=== PATIENT | male | born 1935 | race Caucasian/White ===

== ENCOUNTER 2017-10-28 11:38 | Inpatient (IN) ==
[2017-10-28] MEDS ORDERED: 0.9 % Sodium Chloride 1,000 ML IVC ONE (11:42)
[2017-10-28] MEDS ORDERED: Ipratropium/Albuterol Neb 3 ML IH ONE (11:52)
[2017-10-28 12:14] LABS: Mean Platelet Volume 10.6 fL (9.4-12.4); Nucleated Red Blood Cells 0.1 /100 WBC (0)
[2017-10-28 12:15] LABS: Hematocrit 49.2 % (37.5-50.1); Hemoglobin 16.6 g/dL (12.9-16.9); Mean Corpuscular HGB Conc 33.7 g/dL (31.6-35.5); Mean Corpuscular Hemoglobin 29.9 pg (28.0-33.3); Mean Corpuscular Volume 88.5 fL (83.0-100.0); Platelet Count 159 K/mcL (140-400); Red Blood Count 5.56 M/mcL (4.19-5.50); Red Cell Distribution Width 13.7 % (11.5-14.5)
[2017-10-28 12:27] LABS: INR 1.2; Prothrombin Time 12.9 Seconds (9.4-12.1)
[2017-10-28 12:30] LABS: Activated Partial Thrombo Time 27.7 Seconds (26.0-36.0)
[2017-10-28 12:45] LABS: Monocytes # 1.8 K/mcL (0.0-1.3); Neutrophils # 8.9 K/mcL (1.6-8.9); Smudge Cells Present (Not Present)
[2017-10-28 12:46] LABS: Platelet Estimate Normal (Normal)
[2017-10-28 12:58] LABS: Alanine Aminotransferase 22 Units/L (7-52); Albumin 4.2 g/dL (3.5-5.7); Albumin/Globulin Ratio 1.8 (1.1-2.2); Alkaline Phosphatase 42 Units/L (34-104); Aspartate Amino Transferase 21 Units/L (13-39); Bilirubin,Direct 0.2 mg/dL (0.0-0.2); Bilirubin,Total 1.2 mg/dL (0.3-1.0); Blood Urea Nitrogen 19 mg/dL (8-23); Calcium 9.1 mg/dL (8.6-10.3); Carbon Dioxide 24 mEq/L (23-29); Chloride 104 mEq/L (98-107); Globulin 2.4 g/dL (2.4-3.5); Glucose 132 mg/dL (70-105); Magnesium 1.8 mg/dL (1.6-2.6); Osmolality,Calculated 290 (280-300); Phosphorous 2.9 mg/dL (2.7-4.5); Potassium 3.8 mEq/L (3.5-5.1); Sodium 138 mEq/L (136-145); Total Protein 6.6 g/dL (6.4-8.9)
[2017-10-28 13:38] LABS: BUN/Creatinine Ratio 14 (6-26); eGFR For African Americans > 60 (> 60); eGFR For Non-African Americans 50 (> 60)
[2017-10-28 13:40] LABS: Bilirubin,Urine Negative (Negative); Blood,Urine Large (Negative); Clarity,Urine Clear (Clear); Color,Urine Yellow (Yellow); Glucose,Urine (UA) Normal (Normal); Ketones,Urine Negative (Negative); Leukocyte Esterase,Urine Negative (Negative); Nitrite,Urine Negative (Negative); Protein,Urine Trace mg/dL (Neg-Trace); Specific Gravity,Urine 1.028 (1.010-1.025); Urobilinogen,Urine Normal (Normal)
[2017-10-28 13:43] LABS: Bacteria,Urine None Seen per hpf (None-Few); Hyaline Casts,Urine None Seen per lpf (None-Few); RBC,Urine TNTC per hpf (0-3); Squamous Epithelial Cell,Urine Moderate per lpf (None-Few); WBC,Urine 0-3 per hpf (0-3)
--- NOTE | 2017-10-28 13:54 | Emergency Department Note ---
Disposition Clinical Impression: Abnormal CT scan, lung, Weakness, Hypoxia Pneumonia Qualifiers: Pneumonia type: due to unspecified organism Laterality: unspecified laterality Lung location: unspecified part of lung Qualified Code(s): J18.9 - Pneumonia, unspecified organism Disposition: Admitted As Inpatient Condition: Fair General Adult HPI - General Chief complaint: ED Shortness of Breath/Dyspnea Stated complaint: Cough, Weakness Time Seen by Provider: 10/28/17 11:41 Source: patient, EMS Limitations: no limitations Nursing Notes Reviewed: Yes Vital Signs Reviewed: Yes - History of Present Illness HPI Narrative: Patient presents today for evaluation of generalized weakness. States the weakness is been going on for almost 2 days. Patient unable to get up off the couch. Patient has urinated on himself. Patient has had increased dyspnea. Patient requiring 2 L of oxygen within the emergency department. Does not require home oxygen. [facility] concern for possible [facility]. Patient is able to transfer himself over from the EMS caught to his bed. Complains of whole body weakness and body aches. He has had a cough and is concerned that he has possible pneumonia. He has had positive sputum production. Intermittent subjective fevers. Pain Scale: 0 - Related Data Home Medications Medication Instructions Recorded Confirmed Carboxymethylcellulose Sodium 1 drop BOTH EYES QID 10/28/17 10/28/17 [Refresh Liquigel] Cholecalciferol (D-3) [Vitamin D] 1,000 unit PO DAILY 10/28/17 10/28/17 Ketotifen Fumarate [Zaditor] 1 drop BOTH EYES BID PRN 10/28/17 10/28/17 Naproxen [Naprosyn] 250 mg PO BID PRN 10/28/17 10/28/17 Omeprazole [PriLOSEC] 20 mg PO DAILY PRN 10/28/17 10/28/17 Allergies Allergy/AdvReac Type Severity Reaction Status Date / Time No Known Allergies Allergy Verified 10/28/17 11:39 Review of Systems: CONSTITUTIONAL: Fevers chills weakness and fatigue HEENT: Eyes: No visual changes. Ears, Nose, Throat: No hearing loss, difficulty talking or unable to swallow. SKIN: No rash or itching. CARDIOVASCULAR: No chest pain, chest pressure or chest discomfort. No palpitations or edema. RESPIRATORY: Cough with positive sputum production GASTROINTESTINAL: No anorexia, nausea, vomiting or diarrhea. No abdominal pain or blood. GENITOURINARY: Urinary incontinence NEUROLOGICAL: No headache, dizziness, syncope, paralysis, ataxia, numbness or tingling in the extremities. No change in bowel or bladder control. MUSCULOSKELETAL: No muscle pain, back pain, joint pain or stiffness. Past Medical History - Past Medical History Medical history: Reports: cancer - Social History Smoking Status: Former smoker Smokeless Tobacco Status: No Alcohol use: Reports: none Drug use: Reports: none Physical Exam General: Well appearing, nontoxic, no acute distress Head: Normocephalic Atraumatic Eyes: PERRL, EOMI ENT: Airway patent, no stridor Neck: supple, no meningismus Chest: Diffuse wheezing with rhonchi worse on the right Cardiac: Regular rhythm, no murmurs, rubs or gallops Abdomen: soft, nontender, nondistended; no guarding, rebound, or tenderness to percussion Musculoskeletal: Calves symmetric, nontender, no palpable cord Skin: No rash, normal skin tone Neuro: Alert and Oriented to person, place, and time; No focal deficit, CN 2-12 symmetric and intact - General Limitations: no limitations General appearance: alert, in no apparent distress Course - Reevaluation(s) Reevaluation #1: New oxygen requirement. Concern for pneumonia on chest x-ray. Undergoing workup for possible leukemia lymphoma but nothing is been diagnosed. He has had melanoma in the past. Discussed with the hospitalist and the patient was accepted for admission. Upon reevaluation of the patient patient complains of headache and describes trauma 2 days ago. Patient will need CT scan of the head and neck. We will also perform a CTA of the chest further evaluate lung pathology. Reevaluation #2: Lungs show nodes consistent with neoplasm. No evidence of trauma in the head or C-spine. Patient will undergo further evaluation with the hospitalist service. - Consultations Consultation #1: Discussed with Dr. Simmons. Patient accepted for pneumonia. Vital Signs Temperature 99.1 F 10/28/17 11:44 Pulse Rate 109 10/28/17 11:44 Respiratory Rate 18 10/28/17 11:44 Blood Pressure 126/74 10/28/17 11:44 O2 Sat by Pulse Oximetry 94 10/28/17 11:44 Temperature 99.1 F 10/28/17 11:44 Pulse Rate 105 10/28/17 14:39 Respiratory Rate 14 10/28/17 14:39 Blood Pressure 136/68 10/28/17 14:39 O2 Sat by Pulse Oximetry 98 10/28/17 14:39 Oxygen Delivery Oxygen Delivery Nasal Cannula Medical Decision Making - Medical Records Medical records reviewed: Yes I reviewed the patient's medical records. - Lab Data Lab results reviewed: Yes I reviewed the patient's lab results. Result diagrams: 10/28/17 12:10 10/28/17 12:10 Lab Results 10/28/17 10/28/17 10/28/17 Range/Units 12:10 12:10 12:10 WBC 29.7 H (4.3-11.1) K/mcL RBC 5.56 H (4.19-5.50) M/mcL Hgb 16.6 (12.9-16.9) g/dL Hct 49.2 (37.5-50.1) % MCV 88.5 (83.0-100.0) fL MCH 29.9 (28.0-33.3) pg MCHC 33.7 (31.6-35.5) g/dL RDW 13.7 (11.5-14.5) % Plt Count 159 (140-400) K/mcL MPV 10.6 (9.4-12.4) fL Immature Gran % Test Not Performed Seg Neutrophils % 29.0 % Band Neutrophils % 1.0 (0-4) % Lymphocytes % 64.0 % Monocytes % 6.0 % Eosinophils % Test Not Performed Basophils % Test Not Performed Neutrophils # 8.9 (1.6-8.9) K/mcL Lymphocytes # 19.0 H (0.6-4.6) K/mcL Monocytes # 1.8 H (0.0-1.3) K/mcL Eosinophils # Test Not Performed Basophils # Test Not Performed Nucleated RBCs/100 WBC 0.1 H (0) /100 WBC Smudge Cells Present A (Not Present) Platelet Estimate Normal (Normal) PT 12.9 H (9.4-12.1) Seconds INR 1.2 APTT 27.7 (26.0-36.0) Seconds Sodium 138 (136-145) mEq/L Potassium 3.8 (3.5-5.1) mEq/L Chloride 104 (98-107) mEq/L Carbon Dioxide 24 (23-29) mEq/L BUN 19 (8-23) mg/dL Creatinine 1.37 H (0.70-1.30) mg/dL Est GFR ( Amer) > 60 (> 60) Est GFR (Non-Af Amer) 50 L (> 60) BUN/Creatinine Ratio 14 (6-26) Glucose 132 H (70-105) mg/dL Calculated Osmolality 290 (280-300) Lactic Acid (0.5-2.2) mmol/L Calcium 9.1 (8.6-10.3) mg/dL Phosphorus 2.9 (2.7-4.5) mg/dL Magnesium 1.8 (1.6-2.6) mg/dL Total Bilirubin 1.2 H (0.3-1.0) mg/dL Direct Bilirubin 0.2 (0.0-0.2) mg/dL Indirect Bilirubin 1.0 (0.0-1.2) mg/dL AST 21 (13-39) Units/L ALT 22 (7-52) Units/L Alkaline Phosphatase 42 (34-104) Units/L Troponin I (< 0.04) ng/mL B-Natriuretic Peptide (Less than 100) pg/mL Serum Total Protein 6.6 (6.4-8.9) g/dL Albumin 4.2 (3.5-5.7) g/dL Globulin 2.4 (2.4-3.5) g/dL Albumin/Globulin Ratio 1.8 (1.1-2.2) Urine Color (Yellow) Urine Clarity (Clear) Urine pH (5.0-8.0) pH Units Ur Specific [place] (1.010-1.025) Urine Protein (Neg-Trace) mg/dL Urine Glucose (UA) (Normal) mg/dL Urine Ketones (Negative) mg/dL Urine Blood (Negative) Urine Nitrite (Negative) Urine Bilirubin (Negative) Urine Urobilinogen (Normal) mg/dL Ur Leukocyte Esterase (Negative) Urine Microscopic RBC (0-3) per hpf Urine Microscopic WBC (0-3) per hpf Ur Squamous Epith Cells (None-Few) per lpf Urine Bacteria (None-Few) per hpf Hyaline Casts (None-Few) per lpf Ur Culture Indicated? (NO) 01/01/18 01/01/18 01/01/18 Range/Units 12:10 12:10 13:26 WBC (4.3-11.1) K/mcL RBC (4.19-5.50) M/mcL Hgb (12.9-16.9) g/dL Hct (37.5-50.1) % MCV (83.0-100.0) fL MCH (28.0-33.3) pg MCHC (31.6-35.5) g/dL RDW (11.5-14.5) % Plt Count (140-400) K/mcL MPV (9.4-12.4) fL Immature Gran % Seg Neutrophils % % Band Neutrophils % (0-4) % Lymphocytes % % Monocytes % % Eosinophils % Basophils % Neutrophils # (1.6-8.9) K/mcL Lymphocytes # (0.6-4.6) K/mcL Monocytes # (0.0-1.3) K/mcL Eosinophils # Basophils # Nucleated RBCs/100 WBC (0) /100 WBC Smudge Cells (Not Present) Platelet Estimate (Normal) PT (9.4-12.1) Seconds INR APTT (26.0-36.0) Seconds Sodium (136-145) mEq/L Potassium (3.5-5.1) mEq/L Chloride (98-107) mEq/L Carbon Dioxide (23-29) mEq/L BUN (8-23) mg/dL Creatinine (0.70-1.30) mg/dL Est GFR ( Amer) (> 60) Est GFR (Non-Af Amer) (> 60) BUN/Creatinine Ratio (6-26) Glucose (70-105) mg/dL Calculated Osmolality (280-300) Lactic Acid 2.3 H (0.5-2.2) mmol/L Calcium (8.6-10.3) mg/dL Phosphorus (2.7-4.5) mg/dL Magnesium (1.6-2.6) mg/dL Total Bilirubin (0.3-1.0) mg/dL Direct Bilirubin (0.0-0.2) mg/dL Indirect Bilirubin (0.0-1.2) mg/dL AST (13-39) Units/L ALT (7-52) Units/L Alkaline Phosphatase (34-104) Units/L Troponin I 0.04 H* (< 0.04) ng/mL B-Natriuretic Peptide (Less than 100) pg/mL Serum Total Protein (6.4-8.9) g/dL Albumin (3.5-5.7) g/dL Globulin (2.4-3.5) g/dL Albumin/Globulin Ratio (1.1-2.2) Urine Color Yellow (Yellow) Urine Clarity Clear (Clear) Urine pH 6.0 (5.0-8.0) pH Units Ur Specific [place] 1.028 H (1.010-1.025) Urine Protein Trace (Neg-Trace) mg/dL Urine Glucose (UA) Normal (Normal) mg/dL Urine Ketones Negative (Negative) mg/dL Urine Blood Large H (Negative) Urine Nitrite Negative (Negative) Urine Bilirubin Negative (Negative) Urine Urobilinogen Normal (Normal) mg/dL Ur Leukocyte Esterase Negative (Negative) Urine Microscopic RBC TNTC H (0-3) per hpf Urine Microscopic WBC 0-3 (0-3) per hpf Ur Squamous Epith Cells Moderate H (None-Few) per lpf Urine Bacteria None Seen (None-Few) per hpf Hyaline Casts None Seen (None-Few) per lpf Ur Culture Indicated? NO (NO) 10/28/17 10/28/17 10/28/17 Range/Units 16:15 16:15 16:15 WBC (4.3-11.1) K/mcL RBC (4.19-5.50) M/mcL Hgb (12.9-16.9) g/dL Hct (37.5-50.1) % MCV (83.0-100.0) fL MCH (28.0-33.3) pg MCHC (31.6-35.5) g/dL RDW (11.5-14.5) % Plt Count (140-400) K/mcL MPV (9.4-12.4) fL Immature Gran % Seg Neutrophils % % Band Neutrophils % (0-4) % Lymphocytes % % Monocytes % % Eosinophils % Basophils % Neutrophils # (1.6-8.9) K/mcL Lymphocytes # (0.6-4.6) K/mcL Monocytes # (0.0-1.3) K/mcL Eosinophils # Basophils # Nucleated RBCs/100 WBC (0) /100 WBC Smudge Cells (Not Present) Platelet Estimate (Normal) PT (9.4-12.1) Seconds INR APTT (26.0-36.0) Seconds Sodium (136-145) mEq/L Potassium (3.5-5.1) mEq/L Chloride (98-107) mEq/L Carbon Dioxide (23-29) mEq/L BUN (8-23) mg/dL Creatinine (0.70-1.30) mg/dL Est GFR ( Amer) (> 60) Est GFR (Non-Af Amer) (> 60) BUN/Creatinine Ratio (6-26) Glucose (70-105) mg/dL Calculated Osmolality (280-300) Lactic Acid 2.5 H (0.5-2.2) mmol/L Calcium (8.6-10.3) mg/dL Phosphorus (2.7-4.5) mg/dL Magnesium (1.6-2.6) mg/dL Total Bilirubin (0.3-1.0) mg/dL Direct Bilirubin (0.0-0.2) mg/dL Indirect Bilirubin (0.0-1.2) mg/dL AST (13-39) Units/L ALT (7-52) Units/L Alkaline Phosphatase (34-104) Units/L Troponin I 0.05 H* (< 0.04) ng/mL B-Natriuretic Peptide 126 H (Less than 100) pg/mL Serum Total Protein (6.4-8.9) g/dL Albumin (3.5-5.7) g/dL Globulin (2.4-3.5) g/dL Albumin/Globulin Ratio (1.1-2.2) Urine Color (Yellow) Urine Clarity (Clear) Urine pH (5.0-8.0) pH Units Ur Specific [place] (1.010-1.025) Urine Protein (Neg-Trace) mg/dL Urine Glucose (UA) (Normal) mg/dL Urine Ketones (Negative) mg/dL Urine Blood (Negative) Urine Nitrite (Negative) Urine Bilirubin (Negative) Urine Urobilinogen (Normal) mg/dL Ur Leukocyte Esterase (Negative) Urine Microscopic RBC (0-3) per hpf Urine Microscopic WBC (0-3) per hpf Ur Squamous Epith Cells (None-Few) per lpf Urine Bacteria (None-Few) per hpf Hyaline Casts (None-Few) per lpf Ur Culture Indicated? (NO) - EKG Data EKG #1 EKG attestation: Yes I reviewed and interpreted this EKG. EKG results narrative: EKG shows sinus tachycardia with a ventricular rate of 108. NE 164. QRS 105. QTC 399. Patient has no significant ST elevations or depressions. Patient has no previous EKG for comparison. Premature complexes noted. Critical Care Time Critical Care Time: Yes Total Critical Care Time: 35 Attestation: Critical care performed: Time is exclusive of separately billable procedures. Time includes: direct patient care, patient reassessment, coordination of patient care, interpretation of data (laboratory data, radiology data, and respiratory data), review of patient's medical records, medical consultation and documentation of patient care. Procedures included in critical care time: Procedures excluded from critical care time: Attestation Statement - Attestation Attestation: I examined this patient and my medical decision-making was reviewed with the Resident Physician. I agree with the documented findings, disposition and treatment plan as described except to the extent set forth below. Patient presents to the ED for chief complaint of shortness of breath and generalized weakness. Patient has been laying on the couch for 2 days. He is unable unable to get up. Coughing. He urinated on himself. He is under the care of the [facility]. He is currently being worked up for leukemia. On examination he is weak. He is awake and alert. He is moving all extremities. He is afebrile at 99. Lungs with rhonchi and wheezing. Plan. The patient has a chest x-ray limited as congestion. Going to treat him for pneumonia with his generalized weakness, leukocytosis, and symptoms. Patient is too weak to get off the couch. Patient will be admitted to the hospital. Patient with sepsis without shock. 35 minutes of critical care exclusive of separately procedures.
[2017-10-28] MEDS ORDERED: Levofloxacin 500 MG/100 ML 500 MG/100 ML BAG IVPB ONE (14:06)
--- NOTE | 2017-10-28 15:25 | Internal Med History&Physical ---
Addendum entered and electronically signed by Ronal Haley 10/28/17 15:48: Lung and mediastinal mass - CT chest revealed multiple lung mass with adenopathy. - will consult pulm. Original Note: <Ronal Haley - Last Filed: 10/28/17 15:46> Date of Encounter: 10/28/17 Time of Encounter: 15:19 Assessment and Plan (1) PNA (pneumonia) Status: Acute - Chest x-ray later revealed possible pneumonia, BNP ordered, CT PE pending. - Continue Levaquin IV. Pending blood cultures. Qualifiers: Pneumonia type: due to unspecified organism Laterality: unspecified laterality Lung location: unspecified part of lung Qualified Code(s): J18.9 - Pneumonia, unspecified organism (2) Leukocytosis Status: Acute - Has been follow-up with his physician at [place] for possible leukemia. He has an appointment already. Qualifiers: Leukocytosis type: unspecified Qualified Code(s): D72.829 - Elevated white blood cell count, unspecified (3) JAEL (acute kidney injury) Status: Acute - Likely pre-renal, IVF and repeat RFP. (4) Elevated troponin Status: Acute - Troponin 0.04. EKG revealed multifocal atrial tachycardia. - Pending BNP. continue tele monitoring. - EKG as needed. (5) Melanoma Status: Chronic - Stable, monitoring. Qualifiers: Melanoma location: unspecified site Qualified Code(s): C43.9 - Malignant melanoma of skin, unspecified Internal Medicine - H&P: HPI Admitted From: Emergency Dept Plans for Post Hospital Care: Home History of present illness: Mr. Chopra is a 82 year old male with past medical history of melanoma who presented to the ED with complaint of now feeling well for 2 days. Patient presents today for evaluation of generalized weakness. States the weakness is been going on for almost 2 days. Patient unable to get up off the couch. Patient has urinated on himself. Patient has had increased dyspnea. Patient requiring 2 L of oxygen within the emergency department. Does not require home oxygen. [facility] for [facility]. Patient is able to transfer himself over from the EMS caught to his bed. Complains of whole body weakness and body aches. He has had a cough and is concerned that he has possible pneumonia. He has had positive sputum production. He also has intermittent subjective fevers. At the ED, his vital signs are stable. Chest x-ray revealed possible pneumonia. He will be admitted to inpatient service for further management. Past Med Surg Social Fam HX - Past Medical History Medical history: cancer - Social History Smoking Status: Former smoker Smokeless Tobacco Status: No Alcohol use: none Drug use: none Internal Medicine - H&P: Meds Carboxymethylcellulose Sodium [Refresh Liquigel] 1 drop BOTH EYES QID 10/28/17 [ History] Cholecalciferol (D-3) [Vitamin D] 1,000 unit PO DAILY 10/28/17 [History] Ketotifen Fumarate [Zaditor] 1 drop BOTH EYES BID PRN 10/28/17 [History] Naproxen [Naprosyn] 250 mg PO BID PRN 10/28/17 [History] Omeprazole [PriLOSEC] 20 mg PO DAILY PRN 10/28/17 [History] Ascorbate Calcium [Vitamin C] 500 mg PO DAILY 11/08/17 [History] Vitamin E (Dl,Tocopheryl Acet) [Vitamin E] 400 unit PO DAILY 11/08/17 [History] 3 Allergy/AdvReac Type Severity Reaction Status Date / Time No Known Allergies Allergy Verified 11/08/17 14:25 All Systems PM: A 10-system review of systems was performed and is negative for pertinent findings except as documented above in the HPI. Review of systems: REVIEW OF SYSTEMS: CONSTITUTIONAL: see HPI.. HEENT: Eyes: No visual loss, blurred vision, double vision or yellow sclerae. Ears, Nose, Throat: No hearing loss, sneezing, congestion, runny nose or sore throat. SKIN: No rash or itching. CARDIOVASCULAR: No chest pain, chest pressure or chest discomfort. No palpitations or edema. RESPIRATORY: see HPI. GASTROINTESTINAL: No anorexia, nausea, vomiting or diarrhea. No abdominal pain or blood. GENITOURINARY: No dysuria, urgency, or frequency. NEUROLOGICAL: No headache, dizziness, syncope, paralysis, ataxia, numbness or tingling in the extremities. No change in bowel or bladder control. MUSCULOSKELETAL: No muscle, back pain, joint pain or stiffness. HEMATOLOGIC: No anemia, bleeding or bruising. LYMPHATICS: No enlarged nodes. No history of splenectomy. PSYCHIATRIC: No history of depression or anxiety. ENDOCRINOLOGIC: No reports of sweating, cold or heat intolerance. No polyuria or polydipsia. - Constitutional Vitals: Temp Pulse Resp BP Pulse Ox 99.1 F 105 14 136/68 98 10/28/17 11:44 10/28/17 14:39 10/28/17 14:39 10/28/17 14:39 10/28/17 14:39 Exam: PHYSICAL EXAMINATION: GENERAL APPEARANCE: The patient is alert, oriented and in no acute distress. HEENT: Head is normocephalic. The sinuses are nontender. Pupils are equal and reactive. The nares are patent. Oropharynx clear without lesions. NECK: Supple without lymphadenopathy. HEART: Regular rate and rhythm. LUNGS: diffuse crackle bilaterally. ABDOMEN: Soft, nontender, nondistended with good bowel sounds heard. Inguinal area is normal. EXTREMITIES: Without cyanosis, clubbing or edema. NEUROLOGICAL: Gross nonfocal. SKIN: Warm and dry without any rash. Internal Med - H&P Results - Labs CBC & Chem 7: 10/28/17 12:10 10/28/17 12:10 Labs: Short CBC 10/28/17 Range/Units 12:10 WBC 29.7 H (4.3-11.1) K/mcL Hgb 16.6 (12.9-16.9) g/dL Hct 49.2 (37.5-50.1) % Plt Count 159 (140-400) K/mcL Neutrophils # 8.9 (1.6-8.9) K/mcL BMP 10/28/17 12:10 Sodium 138 Potassium 3.8 Chloride 104 Carbon Dioxide 24 BUN 19 Creatinine 1.37 H Glucose 132 H Calcium 9.1 Cardiac Enzymes 10/28/17 Range/Units 12:10 Troponin I 0.04 H* (< 0.04) ng/mL Liver Function 10/28/17 Range/Units 12:10 Total Bilirubin 1.2 H (0.3-1.0) mg/dL Direct Bilirubin 0.2 (0.0-0.2) mg/dL AST 21 (13-39) Units/L ALT 22 (7-52) Units/L Alkaline Phosphatase 42 (34-104) Units/L Albumin 4.2 (3.5-5.7) g/dL Urine 10/28/17 Range/Units 13:26 Urine Color Yellow (Yellow) Urine Clarity Clear (Clear) Urine pH 6.0 (5.0-8.0) pH Units Ur Specific [place] 1.028 H (1.010-1.025) Urine Protein Trace (Neg-Trace) mg/dL Urine Glucose (UA) Normal (Normal) mg/dL - Impressions ITS Impressions Chest X-Ray 10/28/17 11:52 IMPRESSION: Possible mild pneumonitis or congestion D/ / Amando Hanks MD / Amando Hanks MD Interpreting Provider: Amando Hanks MD <IrisZoila Jose J - Last Filed: 11/22/17 08:04> Date of Encounter: 11/22/17 Internal Medicine - H&P: HPI History of present illness: Mr. Chopra is a 82 year old male All Systems PM: A 10-system review of systems was performed and is negative for pertinent findings except as documented above in the HPI. - Constitutional Vitals: Temp Pulse Resp BP Pulse Ox 98.6 F 74 18 117/70 92 10/31/17 16:24 10/31/17 16:24 10/31/17 16:24 10/31/17 16:24 10/31/17 16:24 Internal Med - H&P Results - Labs CBC & Chem 7: 10/31/17 08:18 10/31/17 08:18 - Attending Attestation I personally and independently interviewed and examined the patient with CLOTH DOFFER, and I reviewed the patient's medical record with her. I am in agreement with the assessment and proposed treatment plan. I discussed my findings and recommendation with the patient and answer all questions. The patient's medical records were edited to accurately reflect this encounter.
[2017-10-28] MEDS ORDERED: (Ketotifen Fumarate [Zaditor] 1 DROP) OP PRN (15:26)
[2017-10-28] MEDS ORDERED: Naloxone 0.4 MG/ML INJ IVP PRN ×2 (15:28→15:30)
[2017-10-28] MEDS ORDERED: MOM Conc 10 ML UD.LIQ PO PRN (15:30)
[2017-10-28] MEDS ORDERED: Acetaminophen 325 MG TABLET PO PRN (15:30)
[2017-10-28] MEDS ORDERED: Ondansetron 4 MG/2 ML VIAL IVP PRN (15:30)
[2017-10-28] MEDS ORDERED: Mag Hydrox/Al Hydrox/Simeth 30 ML UDC PO PRN (15:30)
[2017-10-28] MEDS ORDERED: Levofloxacin 250 MG/50 ML 250 MG/50 ML BAG IVPB ONE (17:10)
[2017-10-28] MEDS: Artificial Tears SOLN 15 ML BOTTLE BOTH EYES SCH ×2 (21:34→21:36)
[2017-10-28] MEDS: *HR* Heparin 5,000 UNIT/ML VIAL SQ SCH (21:51)
[2017-10-28] MEDS: Ipratropium/Albuterol Neb 3 ML IH SCH (22:41)
[2017-10-28] MEDS: Melatonin 3 MG TABLET PO PRN (22:55)
[2017-10-29] MEDS: Ipratropium/Albuterol Neb 3 ML IH SCH ×4 (03:25→22:21)
[2017-10-29 03:43] LABS: Mean Corpuscular Hemoglobin 29.1 pg (28.0-33.3); Red Cell Distribution Width 13.9 % (11.5-14.5)
[2017-10-29 03:45] LABS: Hematocrit 44.3 % (37.5-50.1); Hemoglobin 14.4 g/dL (12.9-16.9); Mean Corpuscular HGB Conc 32.5 g/dL (31.6-35.5); Mean Corpuscular Volume 89.5 fL (83.0-100.0); Mean Platelet Volume 11.1 fL (9.4-12.4); Platelet Count 145 K/mcL (140-400); Red Blood Count 4.95 M/mcL (4.19-5.50)
[2017-10-29 03:59] LABS: Alanine Aminotransferase 20 Units/L (7-52); Albumin 3.6 g/dL (3.5-5.7); Albumin/Globulin Ratio 1.5 (1.1-2.2); Alkaline Phosphatase 35 Units/L (34-104); Aspartate Amino Transferase 28 Units/L (13-39); BUN/Creatinine Ratio 20 (6-26); Bilirubin,Total 0.9 mg/dL (0.3-1.0); Blood Urea Nitrogen 23 mg/dL (8-23); Calcium 8.4 mg/dL (8.6-10.3); Carbon Dioxide 25 mEq/L (23-29); Chloride 105 mEq/L (98-107); Globulin 2.4 g/dL (2.4-3.5); Glucose 113 mg/dL (70-105); Osmolality,Calculated 286 (280-300); Potassium 3.9 mEq/L (3.5-5.1); Sodium 136 mEq/L (136-145); eGFR For African Americans > 60 (> 60); eGFR For Non-African Americans 60 (> 60)
[2017-10-29] MEDS: *HR* Heparin 5,000 UNIT/ML VIAL SQ SCH ×2 (05:21→17:11)
[2017-10-29] MEDS: Cholecalciferol (D-3) 1,000 UNIT TABLET PO SCH (09:15)
[2017-10-29] MEDS: Artificial Tears SOLN 15 ML BOTTLE BOTH EYES SCH ×4 (09:15→21:24)
--- NOTE | 2017-10-29 16:47 | Electrocardiograph Report ---
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
--- NOTE | 2017-10-29 17:52 | Internal Med Progress Note ---
Date of Encounter: 10/29/17 Time of Encounter: 11:00 - Assessment and plan (1) PNA (pneumonia) Current Visit: Yes Status: Acute Assessment and plan: -Patient still with expiratory wheezes bilaterally this morning. -Will continue IV Levaquin in addition to DuoNeb's. Qualifiers: Pneumonia type: due to unspecified organism Laterality: unspecified laterality Lung location: unspecified part of lung Qualified Code(s): J18.9 - Pneumonia, unspecified organism (2) JAEL (acute kidney injury) Current Visit: Yes Status: Resolved Assessment and plan: -Resolved; continue to monitor (3) Elevated troponin Current Visit: Yes Status: Acute Assessment and plan: -Suspect secondary to demand ischemia. (4) Melanoma Current Visit: No Status: Chronic Assessment and plan: -Patient with history of melanoma Qualifiers: Melanoma location: unspecified site Qualified Code(s): C43.9 - Malignant melanoma of skin, unspecified (5) DVT prophylaxis Current Visit: Yes Status: Acute Assessment and plan: -Subcutaneous heparin - Subjective Interval history: Patient still with significant leukocytosis but has begun to trend downward. Patient was expiratory wheezes on exam and to suspected pneumonia JAEL has resolved and elevated troponin secondary to demand ischemia - Constitutional Vitals: Temp Pulse Resp BP Pulse Ox 98.1 F 97 17 104/66 91 10/29/17 16:18 10/29/17 16:18 10/29/17 16:18 10/29/17 16:18 10/29/17 16:18 - Respiratory Respiratory exam: Present: wheezes (Bilateral expiratory wheezes) - Cardiovascular Cardiovascular exam: Present: RRR, +S1, +S2. Absent: diastolic murmur, gallop, rubs, systolic murmur Internal Medicine: Result - Labs CBC & Chem 7: 10/29/17 03:03 10/29/17 03:03 Labs: Short CBC 10/29/17 Range/Units 03:03 WBC 24.9 H (4.3-11.1) K/mcL Hgb 14.4 D (12.9-16.9) g/dL Hct 44.3 (37.5-50.1) % Plt Count 145 (140-400) K/mcL BMP 10/29/17 03:03 Sodium 136 Potassium 3.9 Chloride 105 Carbon Dioxide 25 BUN 23 Creatinine 1.16 Glucose 113 H Calcium 8.4 L Cardiac Enzymes 10/28/17 Range/Units 20:36 Troponin I 0.05 H* (< 0.04) ng/mL Liver Function 10/29/17 Range/Units 03:03 Total Bilirubin 0.9 (0.3-1.0) mg/dL AST 28 (13-39) Units/L ALT 20 (7-52) Units/L Alkaline Phosphatase 35 (34-104) Units/L Albumin 3.6 (3.5-5.7) g/dL - ABG Interpretation ABG results: PT/INR, D-dimer PT 12.9 Seconds (9.4-12.1) H 10/28/17 12:10 Consult Discharge Plan - Plan [facility]errals: [facility]Primary Care Provider[facility] -
[2017-10-29] MEDS ORDERED: Levofloxacin 750 MG/150 ML 750 MG/150 ML BAG IVPB SCH (23:00)
[2017-10-30] MEDS: Melatonin 3 MG TABLET PO PRN (00:40)
[2017-10-30] MEDS: Ipratropium/Albuterol Neb 3 ML IH SCH ×4 (03:41→22:11)
[2017-10-30] MEDS: *HR* Heparin 5,000 UNIT/ML VIAL SQ SCH ×2 (05:45→17:17)
[2017-10-30] MEDS: Cholecalciferol (D-3) 1,000 UNIT TABLET PO SCH (07:55)
[2017-10-30] MEDS: Artificial Tears SOLN 15 ML BOTTLE BOTH EYES SCH ×4 (07:55→20:45)
[2017-10-30 08:46] LABS: Hemoglobin 15.2 g/dL (12.9-16.9); Mean Corpuscular HGB Conc 32.3 g/dL (31.6-35.5); Mean Corpuscular Volume 89.5 fL (83.0-100.0); Mean Platelet Volume 11.2 fL (9.4-12.4); Nucleated Red Blood Cells 0.2 /100 WBC (0); Platelet Count 155 K/mcL (140-400); Red Blood Count 5.25 M/mcL (4.19-5.50); Red Cell Distribution Width 13.7 % (11.5-14.5)
[2017-10-30 09:34] LABS: Eosinophils # 0.4 K/mcL (0.0-0.6); Lymphocytes # 16.9 K/mcL (0.6-4.6); Monocytes # 0.9 K/mcL (0.0-1.3); Neutrophils # 3.7 K/mcL (1.6-8.9); Platelet Estimate Normal (Normal); Reactive Lymphocytes Present (Not Present); Smudge Cells Present (Not Present)
[2017-10-30 09:48] LABS: BUN/Creatinine Ratio 16 (6-26); Blood Urea Nitrogen 19 mg/dL (8-23); Calcium 8.7 mg/dL (8.6-10.3); Carbon Dioxide 25 mEq/L (23-29); Chloride 106 mEq/L (98-107); Glucose 105 mg/dL (70-105); Osmolality,Calculated 289 (280-300); Potassium 4.4 mEq/L (3.5-5.1); Sodium 138 mEq/L (136-145); eGFR For African Americans > 60 (> 60); eGFR For Non-African Americans 58 (> 60)
--- NOTE | 2017-10-30 11:55 | Pulmonology Consult Note ---
Date of Encounter: 10/30/17 Time of Encounter: 08:00 Assessment and Plan (1) Lesion of lung Current Visit: Yes Status: Acute Patient is not aware of any lesions in the lungs in the past and differential diagnosis infectious versus malignancy. Patient has history of melanoma in the past and he was treated, but he does not have history of smoking to be a risk factor. I have explained to the patient he will need a short interval CT chest in about a month to make sure this is not related to his current illness and if adenopathy persist then he will need biopsy and the other option would be to biopsy during this hospitalization, however with his current illness he is at risk and he wants to wait for now which is appropriate and we both agreed. Patient normally follows up in the [facility] and have advised him if he would like to follow up with our clinic then we will be happy to see him. Thank you for the consultation and please call for any questions. (2) Mediastinal adenopathy Current Visit: Yes Status: Acute Patient preferred to wait for now and short interval monitoring (3) PNA (pneumonia) Current Visit: Yes Status: Acute Overall patient is improving Qualifiers: Pneumonia type: due to unspecified organism Laterality: unspecified laterality Lung location: unspecified part of lung Qualified Code(s): J18.9 - Pneumonia, unspecified organism (4) Abnormal CT scan, lung Current Visit: Yes Status: Acute (5) History of melanoma excision Current Visit: Yes Status: Chronic History of Present Illness Consult date: 10/30/17 Requesting physician: Chivo Casas Reason for consult: lung mass Chief complaint: Cough History of present illness: This is a very pleasant 82-year-old gentleman with no history of smoking in the past, however he has history of melanoma status post resection and according to him he had a lymph node biopsy about a year ago and it was negative for malignancy. Patient stated he had a sick contact with his family and started to have cold like symptoms and he is feeling better now. The patient has productive cough with increased dyspnea and he was placed on oxygen. Patient has body weakness and aches and denies any hemoptysis. Patient has sputum production with changing of the color. Patient had CT chest with abnormalities and pulmonary was consulted for that reason. Patient has been in the in the past and denies any other histories of any malignancies. Past Med Surg Social Fam HX - Past Medical History Medical history: cancer - Social History Smoking Status: Former smoker Smokeless Tobacco Status: No Alcohol use: none Drug use: none Medications and Allergies Carboxymethylcellulose Sodium [Refresh Liquigel] 1 drop BOTH EYES QID 10/28/17 [ History] Cholecalciferol (D-3) [Vitamin D] 1,000 unit PO DAILY 10/28/17 [History] Ketotifen Fumarate [Zaditor] 1 drop BOTH EYES BID PRN 10/28/17 [History] Naproxen [Naprosyn] 250 mg PO BID PRN 10/28/17 [History] Omeprazole [PriLOSEC] 20 mg PO DAILY PRN 10/28/17 [History] 3 Allergy/AdvReac Type Severity Reaction Status Date / Time No Known Allergies Allergy Verified 10/28/17 11:39 All Systems: A 10-system review of systems was performed and is negative for pertinent findings except as documented above in the HPI. Physical Examination Vital Signs: Vital Signs, Last 4 Hours Temp Pulse Resp BP Pulse Ox 10/30/17 11:06 98.2 F 83 18 120/65 93 10/30/17 10:39 18 99 General appearance: no acute distress Eyes: nonicteric ENT: oropharynx moist Neck: supple, no lymphadenopathy Effort: normal Inspection: kyphosis (Mild) Auscultation: bilateral: rhonchi (Scattered) Percussion: bilateral: not dull Cardiovascular: regular rate and rhythm Gastrointestinal: normoactive bowel sounds, non-distended Extremities: no cyanosis normal mental status, non-focal exam mood appropriate Results - Laboratory Findings CBC and BMP: 10/30/17 07:52 10/30/17 07:52 PT/INR, D-dimer PT 12.9 Seconds (9.4-12.1) H 10/28/17 12:10 Abnormal lab findings: Abnormal lab results WBC 21.9 K/mcL (4.3-11.1) H 10/30/17 07:52 Lymphocytes # 16.9 K/mcL (0.6-4.6) H 10/30/17 07:52 Nucleated RBCs/100 WBC 0.2 /100 WBC (0) H 10/30/17 07:52 Reactive Lymphocytes Present (Not Present) A 10/30/17 07:52 Smudge Cells Present (Not Present) A 10/30/17 07:52 PT 12.9 Seconds (9.4-12.1) H 10/28/17 12:10 Est GFR (Non-Af Amer) 58 (> 60) L 10/30/17 07:52 Lactic Acid 2.5 mmol/L (0.5-2.2) H 10/28/17 16:15 Troponin I 0.05 ng/mL (< 0.04) H* 10/28/17 20:36 B-Natriuretic Peptide 126 pg/mL (Less than 100) H 10/28/17 16:15 Serum Total Protein 6.0 g/dL (6.4-8.9) L 10/29/17 03:03 Ur Specific Hailey 1.028 (1.010-1.025) H 10/28/17 13:26 Urine Blood Large (Negative) H 10/28/17 13:26 Urine Microscopic RBC TNTC per hpf (0-3) H 10/28/17 13:26 Ur Squamous Epith Cells Moderate per lpf (None-Few) H 10/28/17 13:26 - Microbiology Findings Microbiology Findings: Microbiology, Last 48 Hours 10/29/17 07:40 Legionella Antigen - Final Urine,Clean Catch Streptococcus pneumoniae Antigen (M - Final - Diagnostic Findings CT scan - chest: report reviewed, image reviewed - Clinical Findings Intake & Output: Intake & Output 10/29/17 10/30/17 10/30/17 23:59 07:59 15:59 Intake Total 120 / 120 150 / 150 240 / 240 Balance 120 / 120 150 / 150 240 / 240 Consult Discharge Plan - Plan [facility] Care Provider[facility] -
[2017-10-30] MEDS ORDERED: Levofloxacin 750 MG/150 ML 750 MG/150 ML BAG IVPB SCH (14:00)
--- NOTE | 2017-10-30 19:08 | Internal Med Progress Note ---
Date of Encounter: 10/30/17 Time of Encounter: 11:00 - Assessment and plan (1) PNA (pneumonia) Current Visit: Yes Status: Acute Assessment and plan: -Patient still with expiratory wheezes bilaterally this morning. -Will continue IV Levaquin in addition to DuoNeb's. Qualifiers: Pneumonia type: due to unspecified organism Laterality: unspecified laterality Lung location: unspecified part of lung Qualified Code(s): J18.9 - Pneumonia, unspecified organism (2) JAEL (acute kidney injury) Current Visit: Yes Status: Resolved Assessment and plan: -Resolved; continue to monitor (3) Elevated troponin Current Visit: Yes Status: Acute Assessment and plan: -Suspect secondary to demand ischemia. (4) Melanoma Current Visit: No Status: Chronic Assessment and plan: -Patient with history of melanoma Qualifiers: Melanoma location: unspecified site Qualified Code(s): C43.9 - Malignant melanoma of skin, unspecified (5) DVT prophylaxis Current Visit: Yes Status: Acute Assessment and plan: -Subcutaneous heparin - Subjective Interval history: Patient still with significant leukocytosis but has begun to trend downward. Patient was expiratory wheezes on exam and to suspected pneumonia JAEL has resolved and elevated troponin secondary to demand ischemia - Constitutional Vitals: Temp Pulse Resp BP Pulse Ox 98.0 F 76 12 132/71 95 10/30/17 15:57 10/30/17 15:57 10/30/17 15:57 10/30/17 15:57 10/30/17 15:57 - Respiratory Respiratory exam: Present: CTAB. Absent: accessory muscle use, rales, rhonchi, wheezes - Cardiovascular Cardiovascular exam: Present: RRR, +S1, +S2. Absent: diastolic murmur, gallop, rubs, systolic murmur Internal Medicine: Result - Labs CBC & Chem 7: 10/30/17 07:52 10/30/17 07:52 Labs: Short CBC 10/30/17 Range/Units 07:52 WBC 21.9 H (4.3-11.1) K/mcL Hgb 15.2 (12.9-16.9) g/dL Hct 47.0 (37.5-50.1) % Plt Count 155 (140-400) K/mcL Neutrophils # 3.7 (1.6-8.9) K/mcL BMP 10/30/17 07:52 Sodium 138 Potassium 4.4 Chloride 106 Carbon Dioxide 25 BUN 19 Creatinine 1.19 Glucose 105 Calcium 8.7 - ABG Interpretation ABG results: PT/INR, D-dimer PT 12.9 Seconds (9.4-12.1) H 10/28/17 12:10 Consult Discharge Plan - Plan [facility]errals: [facility] [Primary Care Provider] -
[2017-10-31] MEDS: Ipratropium/Albuterol Neb 3 ML IH SCH ×3 (03:34→15:42)
[2017-10-31] MEDS: *HR* Heparin 5,000 UNIT/ML VIAL SQ SCH ×2 (05:18→18:13)
[2017-10-31 08:59] LABS: Hematocrit 49.5 % (37.5-50.1); Hemoglobin 16.2 g/dL (12.9-16.9); Mean Corpuscular HGB Conc 32.7 g/dL (31.6-35.5); Mean Corpuscular Hemoglobin 29.3 pg (28.0-33.3); Mean Corpuscular Volume 89.7 fL (83.0-100.0); Mean Platelet Volume 11.1 fL (9.4-12.4); Platelet Count 164 K/mcL (140-400); Red Blood Count 5.52 M/mcL (4.19-5.50); Red Cell Distribution Width 13.6 % (11.5-14.5)
[2017-10-31 09:48] LABS: Lymphocytes # 18.3 K/mcL (0.6-4.6); Monocytes # 1.3 K/mcL (0.0-1.3); Neutrophils # 1.7 K/mcL (1.6-8.9)
[2017-10-31 09:49] LABS: Platelet Estimate Normal (Normal); Reactive Lymphocytes Present (Not Present); Smudge Cells Present (Not Present)
[2017-10-31] MEDS: Cholecalciferol (D-3) 1,000 UNIT TABLET PO SCH (10:04)
[2017-10-31] MEDS: Artificial Tears SOLN 15 ML BOTTLE BOTH EYES SCH ×3 (10:04→18:13)
[2017-10-31 16:11] LABS: BUN/Creatinine Ratio 15 (6-26); Blood Urea Nitrogen 17 mg/dL (8-23); Calcium 8.9 mg/dL (8.6-10.3); Carbon Dioxide 25 mEq/L (23-29); Chloride 107 mEq/L (98-107); Glucose 87 mg/dL (70-105); Osmolality,Calculated 291 (280-300); Sodium 140 mEq/L (136-145); eGFR For African Americans > 60 (> 60); eGFR For Non-African Americans > 60 (> 60)
[2017-10-31 16:25] VITALS: BP 117/70
--- NOTE | 2017-10-31 17:29 | Discharge Summary ---
Date of Encounter: 10/31/17 Time of Encounter: 11:00 - Discharge Diagnosis (1) PNA (pneumonia) Priority: Primary Status: Acute Qualifiers: Pneumonia type: due to unspecified organism Laterality: unspecified laterality Lung location: unspecified part of lung Qualified Code(s): J18.9 - Pneumonia, unspecified organism (2) JAEL (acute kidney injury) Priority: Secondary Status: Resolved (3) Elevated troponin Priority: Secondary Status: Acute (4) Melanoma Priority: Secondary Status: Chronic Qualifiers: Melanoma location: unspecified site Qualified Code(s): C43.9 - Malignant melanoma of skin, unspecified - Discharge Medications Prescriptions: levoFLOXacin [Levaquin] 750 mg PO DAILY #7 tablet Home Medications: Carboxymethylcellulose Sodium [Refresh Liquigel] 1 drop BOTH EYES QID 10/28/17 [ History] Cholecalciferol (D-3) [Vitamin D] 1,000 unit PO DAILY 10/28/17 [History] Ketotifen Fumarate [Zaditor] 1 drop BOTH EYES BID PRN 10/28/17 [History] Naproxen [Naprosyn] 250 mg PO BID PRN 10/28/17 [History] Omeprazole [PriLOSEC] 20 mg PO DAILY PRN 10/28/17 [History] levoFLOXacin [Levaquin] 750 mg PO DAILY #7 tablet 10/31/17 [Rx] Allergies/Adverse Reactions: 3 Allergy/AdvReac Type Severity Reaction Status Date / Time No Known Allergies Allergy Verified 10/28/17 11:39 Date of admission: 10/28/17 16:39 [facility] - Patient Status Disposition: Home, Self-Care Condition: Fair - Discharge Instructions Follow Up With: [facility] [Primary Care Provider[facility] - Hospital course: Patient is an 82-year-old male with past medical history significant for melanoma who presented to the ER on 10/28/17 due to generalized weakness and cough. Patient reported of not feeling well for the past 2 days prior to admission and reported of not being able to get off the couch in addition to having increased dyspnea. In the ER, patient was found to be in acute hypoxic respiratory failure requiring 2 L of oxygen; does not require home oxygen. In the ER, chest x-ray showed possible pneumonia and patient was admitted to the medical surgical floor for further management and evaluation. The patients hospital stay his acute hypoxic respiratory failure resolved with treatment of pneumonia with IV Levaquin and DuoNebs. Patient will be discharged home to continue a 5 day course of Levaquin to follow up with his oncology for leukemia workup. [facility] and concern for possible leukemia. - Time Spent with Patient Total time spent providing and/or coordinating discharge services: Less than 30 minutes - Constitutional Vitals: Temp Pulse Resp BP Pulse Ox 98.6 F 74 18 117/70 92 10/31/17 16:24 10/31/17 16:24 10/31/17 16:24 10/31/17 16:24 10/31/17 16:24 - Respiratory Respiratory exam: Present: CTAB. Absent: accessory muscle use, rales, rhonchi, wheezes - Cardiovascular Cardiovascular exam: Present: RRR, +S1, +S2. Absent: diastolic murmur, gallop, rubs, systolic murmur
== END 2017-10-31 19:45 | disposition home or self-care (01) | DRG 193 ==
LOC: EMEROO 11:38 → 2ANU 16:39 → SUATTDRO 16:39 → 2ANU 17:33
PROVIDERS: ADMIT Internal Medicine Nephrology; ATTEND Hospitalist